=== PATIENT | female | born 1980 | race African-American/Black ===

== ENCOUNTER → 2021-02-20 | Day surgery (SDC) | payer OTHER ==
[2021-02-19 09:52] LABS: BASOPHILS % 0.8 % (0.0-1.0); EOSINOPHILS # (AUTO) 0.1 (0.0-0.4); HEMATOCRIT 41.2 % (34.2-44.1); LYMPHOCYTES # (AUTO) 1.6 (1.0-3.2); LYMPHOCYTES % 31.2 % (18.0-39.1); MEAN CORPUSCULAR HEMOGLOBIN 28.2 pg (28-32); MEAN CORPUSCULAR VOLUME 83.1 fL (81-99); MONOCYTES # (AUTO) 0.4 (0.2-0.8); MONOCYTES % 8.6 % (4.4-11.3); NEUTROPHILS # (AUTO) 2.9 (2.1-6.9); NEUTROPHILS % 57.4 % (38.7-80.0); PLATELET COUNT 295 x10e3/uL (140-360); RED BLOOD COUNT 4.96 x10e6/uL (3.6-5.1); RED CELL DISTRIBUTION WIDTH 13.7 % (11.7-14.4)
[2021-02-19 10:40] LABS: ALBUMIN 3.7 g/dL (3.5-5.0); ALBUMIN/GLOBULIN RATIO 1.1 (0.8-2.0); CALCIUM 8.6 mg/dL (8.4-10.2); CREATININE, SERUM 0.69 mg/dL (0.57-1.11)
[~2021-02-20] MED LIST: ACETAMINOPHEN 1000 MG/100 ML 100 ML IV ONE; BETAMETHASONE DISODIUM PHOS 6 MG/ML VIAL ONE; BREO ELLIPTA 11 EACH INH; BUPIVACAINE HCL 0.5% INJ 30 ML VIAL INJ ONE; CALCIUM CITRAT200 MG PO; FENTANYL CITRATE/PF 100MCG/2 ML INJ ONE; LIDOCAINE HCL 1% LOCAL INJ 20 ML VIAL ONE; MULTI-VITAMIN1 EACH PO; MUPIROCIN 2% OINT 22 GM TUBE ONE; PHENTERMINE HCL30 MG PO; SODIUM CHLORIDE 0.9% 50ML 100 ML ONE; TOPIRAMATE ER100 MG PO; VITAMIN B-150 MG PO; VITAMIN B122500 MCG PO; VITAMIN C500 MG PO; VITAMIN D PO
[2021-02-20 09:52] VITALS: BP 119/88
== END | disposition home or self-care (01) ==
LOC: OR 05:56
PROVIDERS: ATTEND Podiatrist Foot Surgery
DX: Q66.212 Congenital metatarsus primus varus, left foot (principal); M20.12 Hallux valgus (acquired), left foot; S93.322A Subluxation of tarsometatarsal joint of left foot, initial encounter; M20.42 Other hammer toe(s) (acquired), left foot; G43.909 Migraine, unspecified, not intractable, without status migrainosus; J45.909 Unspecified asthma, uncomplicated; D57.3 Sickle-cell trait; D64.9 Anemia, unspecified; Z91.040 Latex allergy status; Z91.048 Other nonmedicinal substance allergy status; X58.XXXA Exposure to other specified factors, initial encounter; Z01.810 Encounter for preprocedural cardiovascular examination; Z01.812 Encounter for preprocedural laboratory examination; Z20.822 Contact with and (suspected) exposure to COVID-19
CPT/HCPCS: 28285 ×4; 28292; 28730; 36415; 73620; 80053; 81025; 85025; 93005; C1713; J0131; J0690; J0720; J2001; J3010; U0002

== ENCOUNTER → 2021-08-08 | Day surgery (SDC) | payer OTHER ==
[2021-08-07 11:34] LABS: HEMATOCRIT 40.7 % (34.2-44.1); LYMPHOCYTES # (AUTO) 1.4 (1.0-3.2); MEAN CORPUSCULAR HEMOGLOBIN 28.2 pg (28-32); MEAN CORPUSCULAR HGB CONC 34.4 g/dL (31-35); MEAN CORPUSCULAR VOLUME 82.1 fL (81-99); MONOCYTES # (AUTO) 0.3 (0.2-0.8); MONOCYTES % 6.9 % (4.4-11.3); NEUTROPHILS # (AUTO) 2.5 (2.1-6.9); NEUTROPHILS % 58.1 % (38.7-80.0); PLATELET COUNT 305 x10e3/uL (140-360); RED BLOOD COUNT 4.96 x10e6/uL (3.6-5.1)
[2021-08-07 11:56] LABS: ANION GAP 9.9 mmol/L (8-16); CALCIUM 9.1 mg/dL (8.4-10.2); CREATININE, SERUM 0.76 mg/dL (0.57-1.11); POTASSIUM 3.9 mmol/L (3.5-5.1)
[~2021-08-08] MED LIST changes: -ACETAMINOPHEN 1000 MG/100 ML 100 ML IV ONE; +DEXAMETHASONE SOD PHOS INJ 4 MG/ML SDV ONE; +LIDOCAINE HCL 2% LOCAL INJ 5 ML SDV VIAL INJ ONE; +MIDAZOLAM HCL 2 MG/2 ML VIAL ONE; +ONDANSETRON HCL INJ 2MG/ML 2ML 2 MG/ML VIAL ONE; +POVIDONE IODINE 0.05% 0.05 % ML PO ONE; +PROPOFOL IV EMULSION 10 MG/ML 20 ML VIAL ONE; +SEVOFLURANE INHAL SOLN 250 ML PEN BTL ONE
[2021-08-08 09:00] VITALS: BP 137/89
== END | disposition home or self-care (01) ==
LOC: OR 06:18
PROVIDERS: ATTEND Podiatrist Foot Surgery
DX: M20.12 Hallux valgus (acquired), left foot (principal); L91.0 Hypertrophic scar; J45.909 Unspecified asthma, uncomplicated; Z91.040 Latex allergy status; Z91.011 Allergy to milk products; Z91.014 Allergy to mammalian meats; Z91.018 Allergy to other foods; Z01.812 Encounter for preprocedural laboratory examination; Z20.822 Contact with and (suspected) exposure to COVID-19; Z79.899 Other long term (current) drug therapy; Z68.32 Body mass index [BMI] 32.0-32.9, adult; Z87.01 Personal history of pneumonia (recurrent); Z86.711 Personal history of pulmonary embolism
CPT/HCPCS: 28292; 36415; 73620; 80048; 81025; 85025; J0690; J0720; J1100; J2001 ×2; J2250; J2405; J2704; J3010; U0002